=== PATIENT | male | born 1990 | race African-American/Black ===

== ENCOUNTER 2023-09-10 08:11 | Emergency (ER) | payer MEDICAID, OTHER ==
[~2023-09-10] VITALS: Ht 188 cm; Wt 104.0 kg
[~2023-09-10 08:11] MED LIST: AMOX250T PO; HYDR-3927 PO; NAPR-681 PO
[2023-09-10 08:14] VITALS: BP 149/86; PULSE 78; RESP 18; TEMP 98.7; O2SAT 100
== END 2023-09-10 10:08 | disposition home or self-care (01) ==
LOC: ER 08:11
DX: R05.9 Cough, unspecified (principal); F12.10 Cannabis abuse, uncomplicated
CPT/HCPCS: 71045; 99283

== ENCOUNTER 2024-02-15 12:23 | Emergency (ER) | payer MEDICAID ==
[~2024-02-15] VITALS: Ht 188 cm; Wt 105.0 kg
[2024-02-15 12:46] VITALS: BP 153/100; PULSE 89; RESP 16; TEMP 98.8; O2SAT 100
[2024-02-15] MEDS ORDERED: OLAN15TA3 MT (12:59)
[2024-02-15] MEDS: OLANZAPINE 10MG TABLET PO SCH (13:00)
== END 2024-02-15 13:13 | disposition home or self-care (01) ==
LOC: ER 13:02
DX: F20.9 Schizophrenia, unspecified (principal); F12.10 Cannabis abuse, uncomplicated; Z79.899 Other long term (current) drug therapy
CPT/HCPCS: 99283